=== PATIENT | female | born 2000 | race African-American/Black ===

== ENCOUNTER 2020-12-12 11:27 | Emergency (ER) | payer SELFPAY ==
[2020-12-12 11:59] LABS: #Neutrophils 4.2 10x3/uL (1.5-8.4); %Neutrophils 69.6 % (40.0-75.0)
[2020-12-12 12:00] LABS: #Eosinphils 0.2 10x3/uL (0.0-0.5); #Monocytes 0.3 10x3/uL (0.0-1.1); %Basophils 0.3 % (0.0-2.0); %Eosinophils 2.8 % (0.0-6.0); %Lymphocytes 21.9 % (18.0-47.0); %Monocytes 5.4 % (0.0-10.0); Hemoglobin 12.4 g/dL (12.0-15.5); Mean Corpuscular HGB CONC 34.6 g/dL (32.0-36.0); Mean Corpuscular Hemoglobin 30.2 pg (27.0-33.0); Mean Corpuscular Volume 87.1 fl (81.6-98.3); Mean Platelet Volume 9.6 fl (7.4-10.4); Platelet Count 162 10x3/uL (150-450); RBC Distribution Width 12.3 % (11.5-14.5); Red Blood Cell (RBC) Count 4.11 10x6/uL (3.90-5.03)
[2020-12-12 12:08] LABS: BHCG - Serum Negative (NEGATIVE); Pregs Control Background? CLEAR/WHITE (CLR/WHITE); Pregs Control Bar Appear? YES (CONTROL BAR)
[2020-12-12 12:18] LABS: ALT (SGPT) 10 U/L (8-55); AST (SGOT) 17 U/L (5-34); Alkaline Phosphatase 67 U/L (40-110); Anion Gap 14 mmol/L (10-20); BUN (Urea Nitrogen) 6 mg/dL (7.0-18.7); Bilirubin, Total 0.9 mg/dL (0.2-1.2); Calc. Creatinine Clearance 0 mL/min (70-130); Carbon Dioxide 19 mmol/L (22-29); Chloride 108 mmol/L (98-107); Globulin 3.4 g/dL (2.4-3.5); Glucose 115 mg/dL (70-105); Lipase 15 U/L (8-78); Potassium 3.5 mmol/L (3.5-5.1); Protein, Total 7.4 g/dL (6.0-8.3); Sodium 137 mmol/L (136-145)
== END 2020-12-12 14:03 | disposition home or self-care (01) ==
LOC: CSHERS 11:27
DX: R11.2 Nausea with vomiting, unspecified (principal); R19.7 Diarrhea, unspecified
CPT/HCPCS: 36415; 71045; 80053; 83690; 84484; 84703; 85025; 93005; 96365; 96372; J0500

== ENCOUNTER 2024-07-31 14:15 | Day surgery (SDC) | payer SELFPAY ==
[2024-07-31 14:56] VITALS: BMI 31.2
[2024-07-31] MEDS ORDERED: hydrALAZINE 20 MG/ML VIAL SLOW IVP PRN (15:33)
== END 2024-07-31 17:35 | disposition home or self-care (01) ==
LOC: CSHLD/OP 14:15
PROVIDERS: ATTEND Obstetrics & Gynecology
DX: O47.1 False labor at or after 37 completed weeks of gestation (principal); Z79.899 Other long term (current) drug therapy; Z3A.40 40 weeks gestation of pregnancy
CPT/HCPCS: 76815; 99283

== ENCOUNTER 2024-08-04 07:55 | Inpatient (IN) | payer OTHER ==
[2024-08-04 08:30] VITALS: BMI 31.2
[2024-08-04] MEDS ORDERED: hydrALAZINE 20 MG/ML VIAL SLOW IVP PRN ×2 (08:55→20:51)
[2024-08-04] MEDS ORDERED: Carboprost 250 MCG/ML AMP IM PRN (09:22)
[2024-08-04] MEDS ORDERED: Misoprostol 200 MCG TAB PR PRN (09:22)
[2024-08-04] MEDS ORDERED: fentaNYL 50 mcg/mL 1 mL Vial SLOW IVP PRN (09:22)
[2024-08-04] MEDS ORDERED: Methylergonovine 0.2 MG/ML VIAL IM PRN (09:22)
[2024-08-04] MEDS ORDERED: Diphenoxylate HCl/Atropine Tablet PO PRN (09:22)
[2024-08-04] MEDS ORDERED: Tranexamic Acid 1,000 MG/10 ML VIAL IVP PRN (09:22)
[2024-08-04] MEDS ORDERED: Ondansetron PF 4 MG/2 ML Vial IVP PRN ×2 (09:22→10:31)
[2024-08-04] MEDS ORDERED: Lidocaine 1% (PF) 30 ML VIAL SC PRN (09:26)
[2024-08-04] MEDS ORDERED: HYDROcodone/Acetaminophen 5/325 mg Tablet PO PRN (09:26)
[2024-08-04] MEDS ORDERED: Oxytocin 30 units/NS 500 ML 500 ML IV SCH (09:30)
[2024-08-04] MEDS: Lactated Ringer's 1,000 ML IV SCH (09:40)
[2024-08-04] MEDS: Penicillin G Potassium 5 MILL.UNITS in Sodium Chloride 0.9% 100 ML IVPB SCH (09:50)
[2024-08-04 09:51] LABS: Hematocrit 29.7 % (34.9-44.5); Hemoglobin 9.6 g/dL (12.0-15.5); Mean Corpuscular HGB CONC 32.3 g/dL (32.0-36.0); Mean Corpuscular Volume 83.4 fL (81.6-98.3); Mean Platelet Volume 11.1 fL (7.4-10.4); Platelet Count 177 10x3/uL (150-450); RBC Distribution Width 13.1 % (11.5-14.5); Red Blood Cell (RBC) Count 3.56 10x6/uL (3.90-5.03); White Blood Cell (WBC) Count 6.3 10x3/uL (3.5-10.5)
[2024-08-04 10:28] LABS: HBsAg Index 0.19 S/CO (0-0.99); HIV (1/2) Antibody/Antigen Non-Reactive (NonReactive); HIV 1/2 INDEX 0.12 S/CO (<1.00); Hep B Surf Ag - L&D Non-Reactive S/CO (NonReactive)
[2024-08-04 10:29] LABS: Syphilis Antibody Nonreactive (Nonreactive); Syphilis Antibody Index 0.06 S/CO (<1.00 Non-Reactive)
[2024-08-04] MEDS ORDERED: Promethazine HCl 25 MG/ML VIAL IM PRN (10:31)
[2024-08-04] MEDS ORDERED: diphenhydrAMINE 50 MG/ML VIAL IVP PRN (10:31)
[2024-08-04] MEDS ORDERED: Acetaminophen 325 MG TAB PO PRN (10:31)
[2024-08-04] MEDS ORDERED: Moisturizing Cream (Eucerin) 113 GM JAR TOP PRN (10:31)
[2024-08-04] MEDS ORDERED: Naloxone HCl 0.4 mg/ml Vial IVP PRN ×2 (10:31)
[2024-08-04] MEDS ORDERED: Lactated Ringer's 500 ML IV PRN (10:31)
[2024-08-04] MEDS ORDERED: Active EPIDURAL FS SCH (10:45)
[2024-08-04] MEDS: fentaNYL 2 mcg/Ropivacaine 0.2% Epidural 100 ML CADD EPIDURAL SCH (10:59)
[2024-08-04] MEDS: ePHEDrine Sulfate 50 MG/10 ML VIAL SLOW IVP PRN (11:09)
[2024-08-04] MEDS: Penicillin G 2.5 MILL.units 2.5 MILL.UNITS in Premix 1 BAG IVPB SCH (13:53)
[2024-08-04] MEDS ORDERED: diphenhydrAMINE 25 MG CAP PO PRN (20:51)
[2024-08-04] MEDS ORDERED: Bisacodyl 10 MG SUPP PR PRN (20:51)
[2024-08-04] MEDS ORDERED: Zolpidem Tartrate 5 MG TAB PO PRN (20:51)
[2024-08-04] MEDS ORDERED: Preparation H Ointment 28 GM TUBE PR PRN (20:51)
[2024-08-04] MEDS ORDERED: Boostrix 0.5 ML (Tdap) VIAL (>/=7 yrs of age) IM ONE (20:51)
[2024-08-04] MEDS ORDERED: Milk Of Magnesia 30 ML UDCUP PO PRN (20:51)
[2024-08-04] MEDS ORDERED: Lanolin Ointment 7 GM TUBE TOP PRN (20:51)
[2024-08-04] MEDS: Ibuprofen 800 MG TAB PO PRN (21:29)
[2024-08-04] MEDS: Docusate 100 MG CAP PO SCH (21:32)
[2024-08-04] MEDS: Ibuprofen 800 MG TAB PO SCH (21:46)
[2024-08-04 21:48] LABS: Analyzer IN Cardio CS NICU; Critical Notified By: CP.PH; RapidComm Collect By CBN
[2024-08-04 21:50] LABS: Analyzer IN Cardio CS NICU; Critical Notified By: CP.PH; RapidComm Collect By CBN
[2024-08-04] MEDS: Penicillin G Potassium 5 MILL.UNITS VIAL ONE (23:22)
[2024-08-04] MEDS: fentaNYL/Ropivacaine Epidural 100 ML ONE (23:22)
[2024-08-04] MEDS: Sodium Chloride 0.9% 100 ML ONE (23:22)
[2024-08-05] MEDS: Benzocaine-Menthol 82.5 ML CAN TOP PRN (03:57)
[2024-08-05] MEDS: Acetaminophen 500 MG TAB PO PRN (03:57)
[2024-08-05 04:43] LABS: Hematocrit 29.3 % (34.9-44.5); Hemoglobin 9.3 g/dL (12.0-15.5); Mean Corpuscular HGB CONC 31.7 g/dL (32.0-36.0); Mean Corpuscular Hemoglobin 26.8 pg (27.0-33.0); Mean Corpuscular Volume 84.4 fL (81.6-98.3); Mean Platelet Volume 10.7 fL (7.4-10.4); Platelet Count 162 10x3/uL (150-450); RBC Distribution Width 13.5 % (11.5-14.5); Red Blood Cell (RBC) Count 3.47 10x6/uL (3.90-5.03); White Blood Cell (WBC) Count 17.2 10x3/uL (3.5-10.5)
[2024-08-05] MEDS: Ferrous Sulfate 325 MG TAB PO SCH (07:54)
[2024-08-05] MEDS ORDERED: Diphenoxylate HCl/Atropine Tablet PO PRN (10:41)
[2024-08-06] MEDS ORDERED: traMADol HCl 50 MG TAB PO PRN (06:08)
[2024-08-06] MEDS: Acetaminophen 500 MG TAB PO SCH (06:47)
[2024-08-07 07:04] VITALS: BP 105/56; TEMP 98.5
== END 2024-08-07 14:00 | disposition home or self-care (01) | DRG 807 ==
LOC: CSHLD/OP 07:55 → CSHLD 09:30 → CSHPP 23:05
PROVIDERS: ADMIT Obstetrics & Gynecology; ATTEND Obstetrics & Gynecology
PROC: 0HQ9XZZ Repair Perineum Skin, External Approach (ICD-10-PCS; principal; 2024-08-04)
PROC: 10E0XZZ Delivery of Products of Conception, External Approach (ICD-10-PCS; 2024-08-04)
DX: O48.0 Post-term pregnancy (principal); Z37.0 Single live birth; Z3A.40 40 weeks gestation of pregnancy; O69.81X0 Labor and delivery complicated by cord around neck, without compression, not applicable or unspecified; O70.0 First degree perineal laceration during delivery; O99.02 Anemia complicating childbirth; D50.9 Iron deficiency anemia, unspecified
CPT/HCPCS: 36415; 51702; 82805; 85027; 86762; 86780; 86850; 86900; 86901; 87340; 87389; 99285; J2540; J7120